=== PATIENT | female | born 1965 | race Caucasian/White ===

== ENCOUNTER 2022-06-14 00:22 | Emergency (ER) | payer BC, OTHER ==
[2022-06-14 01:40] LABS: Urine Bacteria NONE SEEN /hpf (None Seen); Urine Blood 3+ /uL (Negative); Urine Mucus FEW (None Seen); Urine Specific Gravity 1.023 (1.001-1.035); Urine WBC 129 /hpf (0 - 5)
[2022-06-14] MEDS ORDERED: levoFLOXacin 500 MG TAB PO ONE (02:45)
[2022-06-14] MEDS ORDERED: LEVO500T31 PO (03:20)
[2022-06-14 06:23] VITALS: BP 129/85
== END 2022-06-14 06:24 | disposition home or self-care (01) ==
LOC: ER 00:22
DX: N39.0 Urinary tract infection, site not specified (principal)
CPT/HCPCS: 74176; 81001